=== PATIENT | female | born 1985 | race Caucasian/White ===

== ENCOUNTER 2021-08-02 12:23 | Emergency (ER) | payer OTHER, SELFPAY ==
[2021-08-02 12:33] VITALS: BP 130/92; PULSE 70; RESP 16; TEMP 36.9; O2SAT 99
[2021-08-02] MEDS: TETANUS,DIPHTHERIA,AC PERTUSSIS ADULT (0.5 ML) BOOSTRIX IM (13:55)
--- NOTE | 2021-08-02 13:59 | ED.WOUNDLAC ---
HPI - Wound/Laceration General Chief Complaint: Wound/Laceration Stated Complaint: LacerationL hand Time Seen by Provider: 08/02/21 12:40 History of Present Illness HPI narrative: Patient is a 36-year-old female who presents ER with laceration to the first webspace of the left hand. She was cutting onions when she caught her hand. No numbness or tingling. Range of motion of the fingers intact. Unknown last tetanus shot. Related Data Allergies Allergy/AdvReac Type Severity Reaction Status Date / Time No Known Allergies Allergy Unverified 10/24/15 17:28 Review of Systems Musculoskeletal: Musculoskeletal: Denies arthralgias, Denies joint swelling and Denies muscle cramps Integumentary/Breasts: Skin/Breast: Denies erythema and Denies rash Comments: Laceration Neurologic: Denies focal weakness and Denies numbness PMFSH Past Medical History Medical History (Updated 08/02/21 @ 14:02 by Mario Sherman MD) Healthy female adult Surgical History Surgical History (Updated 08/02/21 @ 14:02 by Mario Sherman MD) No pertinent past surgical history Exam Narrative: GENERAL: Well-appearing, well-nourished, and in no acute distress. HEAD: Normocephalic, atraumatic. HEART: Regular rate and rhythm. Normal peripheral pulses. EXTREMITIES: Normal range of motion. No edema. Range of motion and strength preserved in the fingers of the hand on the left side. Sharp touch discrimination retained. SKIN: Warm, dry, no rash. Laceration left first webspace 3 cm in length in the subcutaneous tissue without visualization of muscle/tendon/bone. NEURO: No focal deficits. Alert and oriented x3. PSYCH: Normal mood and affect. Course Course Emergency Course: Laceration repaired. Tetanus shot updated. Vital Signs Vital signs: Vital Signs Temperature 98.5 F 08/02/21 12:33 Pulse Rate 70 08/02/21 12:33 Respiratory Rate 16 08/02/21 12:33 Blood Pressure 130/92 H 08/02/21 12:33 Pulse Oximetry 99 08/02/21 12:33 Temperature 98.5 F 08/02/21 12:33 Pulse Rate 70 08/02/21 12:33 Respiratory Rate 16 08/02/21 12:33 Blood Pressure 130/92 H 08/02/21 12:33 Pulse Oximetry 99 08/02/21 12:33 Procedures Laceration Laceration 1: Date: 08/02/21 Time: 13:40 Site: hand Side (If applicable): left Size (cm): 3 Description: linear Depth: simple, single layer Local Anesthetic: lidocaine 1% and with epi Amount of anesthesia used (mL): 5 Pre-repair: wound explored, irrigated and deep structures intact ====== Skin Level ====== Skin layer closed with: nylon Size (cm): 4-0 Number of sutures: 6 Technique: simple, interrupted ====== Subcutaneous Layer ====== ====== Muscle Layer ====== ====== Tendon Layer ====== Discharge Plan Discharge Clinical Impression: Laceration Patient Disposition: Home, Self-Care Condition: Stable Instructions: Antibiotic Form, Care For Your Stitches (ED), Laceration (ED) Additional Instructions: Return the ER if your hand is red/hot/swollen, there is pus draining from your wound, you develop fever over 100.4 ?F, you have additional concerns. Remove your sutures on 08/16/2021. Your tetanus shot was updated in the ER. Follow-up/Referrals: George,KATHLEEN Hager [Primary Care Provider] - 2 Weeks Stand Alone Forms: Work/School Release IP
== END 2021-08-02 14:10 | disposition home or self-care (01) ==
PROVIDERS: Emergency Provider Emergency Medicine; PCP Physician Assistant
DX: S61.412A Laceration without foreign body of left hand, initial encounter (principal); Z23 Encounter for immunization; W26.0XXA Contact with knife, initial encounter; Y93.G1 Activity, food preparation and clean up
CPT/HCPCS: 12002; 90471; 90715; 99282

== ENCOUNTER 2021-08-18 14:48 | Emergency (ER) | payer SELFPAY ==
[2021-08-18 14:56] VITALS: BP 119/78; PULSE 89; RESP 16; TEMP 37.2; O2SAT 100
--- NOTE | 2021-08-18 14:56 | ED.SKABFB ---
HPI - Skin/Abscess/Foreign Bdy General Chief complaint: Skin/Abscess/Foreign Body Stated complaint: Stitches removal Source: patient Mode of arrival: ambulatory Limitations: no limitations History of Present Illness HPI narrative: Patient is a 36-year-old female who presents for suture removal. Patient reports laceration to left hand on 08/02. She reports having sutures placed at [facility] emergency department. She reports tetanus up-to-date. She reports slight tingling index finger and decreased range of motion. She denies all other complaints at this time. MD complaint: laceration Related Data Home Medications Medication Instructions Recorded Confirmed No Home Medications 08/18/21 08/18/21 Allergies Allergy/AdvReac Type Severity Reaction Status Date / Time No Known Allergies Allergy Verified 08/18/21 15:09 Review of Systems Review of Systems: CONSTITUTIONAL: Denies fever, chills, or sweats. EYES: Denies visual changes, redness, or discharge. ENT: Denies rhinorrhea, congestion, sore throat, or otalgia. CARDIOVASCULAR: Denies chest pain, palpitations, or edema. RESPIRATORY: Denies cough or dyspnea. GASTROINTESTINAL: Denies abdominal pain, nausea, vomiting, or diarrhea. GENITOURINARY: Denies dysuria or hematuria. SKIN: Left hand suture removal MUSCULOSKELETAL: Denies back pain, joint pain, or myalgia. NEUROLOGIC: Denies headache, numbness, dizziness, or weakness. PSYCHIATRIC: Denies anxiety or depression. PMFSH Past Medical History Medical History Healthy female adult Surgical History Surgical History No pertinent past surgical history Social History Social History (Updated 08/18/21 @ 15:11 by JASON Wall) Smoking status: Never smoker Alcohol intake: never Substance use: never Living arrangements: with family Occupation/Education: occupation Comments At the time of signature, I have reviewed and agree with nursing past medical, surgical, social, and family history unless otherwise noted. Please see nursing chart for further information. There is no relevant family history pertinent to the presenting complaint. Exam Narrative: GENERAL: Well-appearing, well-nourished, and in no acute distress. HEAD: Normocephalic, atraumatic. EYES: EOMI. No redness or drainage. ENT: Mucous membranes pink and moist. CHEST: No respiratory distress. Clear to auscultation. HEART: Regular rate and rhythm. EXTREMITIES: Normal range of motion. No edema. SKIN: Approximately 3 cm laceration and first webspace, well-healed, [address], no surrounding erythema or edema, no discharge noted, distal sensation intact, good capillary refill NEURO: No focal deficits. Alert and oriented x3. Gait steady. PSYCH: Normal affect. No signs of depression or anxiety. Course Vital Signs Vital signs: Vital Signs Temperature 37.2 C 08/18/21 14:56 Pulse Rate 89 08/18/21 14:56 Respiratory Rate 16 08/18/21 14:56 Blood Pressure 119/78 08/18/21 14:56 Pulse Oximetry 100 08/18/21 14:56 Temperature 37.2 C 08/18/21 14:56 Pulse Rate 89 08/18/21 14:56 Respiratory Rate 16 08/18/21 14:56 Blood Pressure 119/78 08/18/21 14:56 Pulse Oximetry 100 08/18/21 14:56 MDM - Skin/Abscess/Foreign Bdy MDM Narrative Medical decision making narrative: 6 sutures were removed at this time. Wound cleansed, dressing applied. Patient instructed to follow-up with hand specialist if she continues have numbness, tingling or decreased range of motion. Referral to Dr. Alonso given. Patient is stable for discharge to home with outpatient follow-up as needed. Differential Diagnosis Differential diagnosis: Likely other (Laceration, abrasion, avulsion, suture removal) Medical Records Attestation: I reviewed the patient's medical records. Critical Care Time Critical Care Time Critical
== END 2021-08-18 15:35 | disposition home or self-care (01) ==
PROVIDERS: Emergency Provider Nurse Practitioner
DX: S61.412D Laceration without foreign body of left hand, subsequent encounter (principal); X58.XXXD Exposure to other specified factors, subsequent encounter
CPT/HCPCS: 99211; G0463

== ENCOUNTER 2021-10-21 13:41 | Emergency (ER) | payer OTHER, SELFPAY ==
[2021-10-21 13:58] VITALS: BP 117/77; PULSE 91; RESP 16; TEMP 36.5; O2SAT 99
--- NOTE | 2021-10-21 14:13 | ED.FEMALEGU ---
HPI - Female Genitourinary General Chief complaint: Urogenital-Female Stated complaint: uti Source: patient and RN notes reviewed Mode of arrival: ambulatory History of Present Illness HPI Narrative: This is a 36-year-old female who presented to urgent care with complaints of frequency, urgency, dysuria since Monday. Patient notes that while at home she took Azo and hot baths with no improvement. The patient denies SOB, CP, palpitation, extremity numbness, lightheadedness, dizziness, constipation, diarrhea, chills, or fever. Urinalysis was not completed due to orange urine result in false positive. Urine culture sent out MD elicited complaint: dysuria and UTI Related Data Allergies Allergy/AdvReac Type Severity Reaction Status Date / Time No Known Allergies Allergy Verified 08/18/21 15:09 Review of Systems Review of Systems: A 14 organ system Review of Systems was performed and pertinent positives included in the HPI, otherwise remaining ROS is negative. [facility] Past Medical History Medical History Healthy female adult Surgical History Surgical History No pertinent past surgical history Family History Family History (Updated 10/21/21 @ 14:14 by SHAHEED Calix) Other Family history non-contributory Social History Social History Smoking status: Never smoker Alcohol intake: never Substance use: never Exam Narrative: GENERAL: This is a well-nourished, well-developed patient, in no apparent distress. HEAD: normocephalic, atraumatic. EYES: PERRL. Sclera clear/white. Vision is grossly intact. EARS: External ears normal, auditory canals clear and without drainage, TMs normal without perforation. Hearing grossly intact. NOSE: External nose normal with no obvious nasal discharge, nares without redness, no rhinorrhea. THROAT: Mucous membranes moist, posterior pharynx clear. NECK: Neck supple, non-tender without lymphadenopathy, masses or thyromegaly. CARDIOVASCULAR: Regular rate and rhythm without murmurs, gallops, or rubs. RESPIRATORY: Clear to auscultation. Breath sounds equal bilaterally. No wheezes, rales, or rhonchi. GASTROINTESTINAL: Abdomen soft, non-tender, nondistended. Bowel sounds are active. No hepato-splenomegaly, or palpable masses. No guarding. SKIN: warm, intact with no suspicious lesions or rash, good texture and turgor. NEURO: awake, alert, and oriented to person, place and time. There were no obvious focal neurologic abnormalities. Steady gait EXTREMITIES: Normal range of motion. No edema. No calf tenderness. Negative Homans sign bilaterally. BACK: Nontender without deformity or crepitance. No flank tenderness. Course Course Emergency Course: Patient will discharge home with Bactrim DS twice daily x5 days Vital Signs Vital signs: Vital Signs Temperature 97.7 F 10/21/21 13:58 Pulse Rate 91 10/21/21 13:58 Respiratory Rate 16 10/21/21 13:58 Blood Pressure 117/77 10/21/21 13:58 Pulse Oximetry 99 10/21/21 13:58 Temperature 97.7 F 10/21/21 13:58 Pulse Rate 91 10/21/21 13:58 Respiratory Rate 16 10/21/21 13:58 Blood Pressure 117/77 10/21/21 13:58 Pulse Oximetry 99 10/21/21 13:58 MDM - Female Genitourinary MDM Narrative Medical decision making narrative: Patient will be treated for UTI. Urinalysis not completed due to use of Azo and orange urine. Culture will be sent out Differential Diagnosis Differential diagnosis: Likely urinary tract infection, bacterial vaginosis and vaginitis Discharge Plan Discharge Clinical Impression: Urinary tract infection Qualifiers: Urinary tract infection type: site unspecified Hematuria presence: without hematuria Qualified Code(s): N39.0 - Urinary tract infection, site not specified Patient Disposition: Home, Self-Care Condition: Sta
--- NOTE | 2021-10-21 14:25 | PC.NURSE ---
supervisor forming department requested to cancel urine test but to do urine cx d/t pt taking azo.
== END 2021-10-21 14:18 | disposition home or self-care (01) ==
PROVIDERS: Emergency Provider Nurse Practitioner
DX: N39.0 Urinary tract infection, site not specified (principal)
CPT/HCPCS: 87077; 87086; 87088; 99213; G0463

== ENCOUNTER 2022-03-18 09:11 | Emergency (ER) | payer OTHER, SELFPAY ==
[2022-03-18 09:18] VITALS: BP 134/75; PULSE 91; RESP 18; TEMP 36.6; O2SAT 100
--- NOTE | 2022-03-18 09:44 | ED.URI ---
HPI - URI/Sore Throat General Chief Complaint: Upper Respiratory Infection Stated Complaint: Congestion,Ear Pain Time Seen by Provider: 03/18/22 09:30 Source: patient Mode of arrival: ambulatory Limitations: no limitations History of Present Illness HPI Narrative: Janell Maldonado is a 36 yo female with no PMH [facility] of cough body aches not feeling well x3 days Related Data Allergies Allergy/AdvReac Type Severity Reaction Status Date / Time No Known Allergies Allergy Verified 08/18/21 15:09 Review of Systems Review of Systems: CONSTITUTIONAL: Denies fever, chills, sweats. Not feeling well, body aches EYES: Denies visual changes, redness, discharge. ENT: Denies rhinorrhea, congestion, sore throat, bilateral otalgia. CARDIOVASCULAR: Denies chest pain, palpitations, edema. RESPIRATORY: Denies dyspnea, wheezing, has cough GASTROINTESTINAL: Denies abdominal pain, nausea, vomiting, diarrhea. GENITOURINARY: Denies dysuria, hematuria, abnormal discharge SKIN: Denies rash or itching. NEUROLOGIC: Denies numbness, or focal weakness. PSYCHIATRIC: Denies anxiety or depression. PMFSH Past Medical History Medical History Healthy female adult Surgical History Surgical History No pertinent past surgical history Family History Family History Other Family history non-contributory Social History Social History Smoking status: Never smoker Alcohol intake: never Substance use: never Comments At time of signature, I agree with nursing past medical, surgical, social and family history. There is no relevant family history pertinent to the presenting complaint. Exam Narrative: GENERAL: This is a well-nourished, well-developed patient, in mild distress. HEAD: normocephalic, atraumatic. EYES: . Sclera clear/white. Vision is grossly intact. EARS: External ears normal, auditory canals erythema with fluid behind TM and without drainage, TMs bulging, Hearing grossly intact. NOSE: External nose normal without nasal discharge, nares with redness, has rhinorrhea. THROAT: Mucous membranes moist, posterior pharynx mild erythema NECK: Neck supple, non-tender CARDIOVASCULAR: Regular rate and rhythm without murmurs, gallops, or rubs. RESPIRATORY: Clear to auscultation. Breath sounds equal bilaterally. No wheezes, rales, or rhonchi. GASTROINTESTINAL: Abdomen soft, SKIN: warm, intact with no suspicious lesions or rash, good texture and turgor. NEURO: awake, alert, and oriented to person, place and time. There were no obvious focal neurologic abnormalities. Steady gait EXTREMITIES: Normal range of motion. BACK: Nontender without deformity Course Course Emergency Course: Patient here with body aches not feeling well sore throat cough x3 days Glucose is negative COVID test positive Has not what appears to be a bilateral ear infection also Level of Care: Express Care Visit Vital Signs Vital signs: Vital Signs Temperature 97.8 F 03/18/22 09:18 Pulse Rate 91 03/18/22 09:18 Respiratory Rate 18 03/18/22 09:18 Blood Pressure 134/75 03/18/22 09:18 Pulse Oximetry 100 03/18/22 09:18 Temperature 97.8 F 03/18/22 09:18 Pulse Rate 91 03/18/22 09:18 Respiratory Rate 18 03/18/22 09:18 Blood Pressure 134/75 03/18/22 09:18 Pulse Oximetry 100 03/18/22 09:18 MDM - URI/Sore Throat Differential Diagnosis Differential diagnosis: Likely upper respiratory infection, otitis media, sinusitis, viral infection and pharyngitis Lab Data Labs: Lab Results 03/18/22 Range/Units 09:32 POC SARS CoV-2 Ag Positive (Negative) Influenza A Screen Negative Reference Range: Negative Influenza B Screen
== END 2022-03-18 09:59 | disposition home or self-care (01) ==
PROVIDERS: Emergency Provider Nurse Practitioner
DX: U07.1 COVID-19 (principal)
CPT/HCPCS: 87426; 87804; 99213; C9803; G0463

== ENCOUNTER 2022-09-20 14:10 | Emergency (ER) | payer OTHER, SELFPAY ==
[2022-09-20 14:21] VITALS: BP 126/82; PULSE 96; RESP 16; TEMP 37.1; O2SAT 100
--- NOTE | 2022-09-20 14:34 | ED.FEMALEGU ---
HPI - Female Genitourinary General Chief complaint: Urogenital-Female Stated complaint: UTI Time Seen by Provider: 09/20/22 14:34 Source: patient, RN notes reviewed and old records reviewed Mode of arrival: ambulatory Limitations: no limitations History of Present Illness HPI Narrative: The 37-year-old female presents to the [facility] with complaints urinary symptoms for 2 days. Patient reports urinary frequency, burning, not able to empty her bladder with lower suprapubic pressure and low back pain. Denies nausea vomiting diarrhea. Denies fevers. Related Data Home Medications Medication Instructions Recorded Confirmed bupropion HCl 300 mg 24 hr tablet, 300 mg PO DAILY 09/20/22 09/20/22 extended release Allergies Allergy/AdvReac Type Severity Reaction Status Date / Time No Known Allergies Allergy Verified 09/20/22 14:31 Review of Systems Review of Systems: All systems reviewed & are unremarkable except as noted in HPI and below Constitutional: Constitutional: Reports no additional constitutional complaints, Denies chills and Denies fatigue Eyes: Eyes: Reports no additional eye complaints ENT: Reports system reviewed and no additional complaints, except as documented Cardiovascular: Cardiovascular: Reports no additional cardiovascular complaints Respiratory: Respiratory: Reports no additional respiratory complaints Gastrointestinal: Gastrointestinal: Reports no additional gastrointestinal complaints, Denies abdominal pain, Denies diarrhea, Denies nausea and Denies vomiting Genitourinary: Genitourinary: Reports as per HPI, Reports hematuria, Reports dysuria, Denies flank pain, Denies vaginal discharge and Reports other (Urinary frequency, unable to empty bladder) Musculoskeletal: Musculoskeletal: Reports no additional musculoskeletal complaints and Denies back pain Integumentary/Breasts: Skin/Breast: Reports system reviewed and no additional complaints, except as docu Neurologic: Reports system reviewed and no additional complaints, except as documented Psychiatric: Psychiatric: Reports no additional psychiatric complaints Endocrine: Endocrine: Denies fatigue Allergic/Immunologic: Allergic/Immunologic: Reports no additional allergic/immunologic complaints [facility] Past Medical History Medical History (Updated 09/20/22 @ 21:23 by Farida Ryan APRN) Anxiety and depression Healthy female adult Surgical History Surgical History No pertinent past surgical history Family History Family History Other Family history non-contributory Social History Social History Smoking status: Never smoker Alcohol intake: never Substance use: never Comments At the time of my signature, I reviewed and agree with the nursing past medical, surgical, social, and family history. There is no relevant family history pertinent to the patient complaint. Exam Const: General: healthy appearing, no acute distress, alert and well nourished Nutritional Appearance: well nourished Orientation/consciousness: patient oriented x3 Limitations: no limitations HENMT: Head: normal to inspection Ears: external ears normal Face/Nose/Sinus: Normal external nose present Face and sinus: normal facial exam Eyes: Conjunctivae: conjunctivae normal Pupils: Equal, round and reactive pupils present Neck: Neck: normal visual inspection, no lymphadenopathy and no meningeal signs Chest: Chest palpation & inspection: normal inspection of the chest and abnormal inspection of the chest Resp: Effort & Inspection: normal respiratory effort Auscultation: clear to auscultation bilaterally Cardio: Rate: regular rate Rhythm: regular rhythm GI: GI Palp: No Tenderness to palpation present (GI) : General: Yes no CVA tenderness Back/Spine/Pelvis: Back: no CVA tend
== END 2022-09-20 14:53 | disposition home or self-care (01) ==
PROVIDERS: Emergency Provider Nurse Practitioner
DX: N39.0 Urinary tract infection, site not specified (principal); F41.9 Anxiety disorder, unspecified; F32.A Depression, unspecified
CPT/HCPCS: 81003; 87077; 87086; 87186; 99213; G0463

== ENCOUNTER 2023-07-18 15:34 | Emergency (ER) | payer OTHER, SELFPAY ==
[2023-07-18 16:07] VITALS: BP 139/90; PULSE 90; RESP 16; TEMP 36.7; O2SAT 99
--- NOTE | 2023-07-18 16:45 | PC.NURSE ---
NO ANSWER WHEN CALLED FOR LAB DRAW
--- NOTE | 2023-07-18 17:00 | PC.NURSE ---
PT NOT FOUND IN WAITING ROOM FOR LAB DRAW
== END 2023-07-18 16:45 | disposition left against medical advice (07) ==
DX: R10.9 Unspecified abdominal pain (principal)
CPT/HCPCS: 99199